=== PATIENT | male | born 1960 | race Caucasian/White ===

== ENCOUNTER 2017-07-29 07:16 | Emergency (ER) | payer SELFPAY ==
[~2017-07-29] VITALS: Ht 180.3 cm; Wt 76.3 kg
[~2017-07-29 07:16] MED LIST: LEVO500T8; OXYC5CAP2
[2017-07-29 07:20] VITALS: BP 132/78
== END 2017-07-29 08:40 | disposition home or self-care (01) ==
LOC: ED 08:34
DX: S90.822A Blister (nonthermal), left foot, initial encounter (principal); S90.821A Blister (nonthermal), right foot, initial encounter; M79.672 Pain in left foot; M79.671 Pain in right foot; X58.XXXA Exposure to other specified factors, initial encounter; Y93.89 Activity, other specified; Y92.89 Other specified places as the place of occurrence of the external cause; Y99.8 Other external cause status
CPT/HCPCS: 99281